=== PATIENT | female | born 1960 | race Caucasian/White ===

== ENCOUNTER 2019-11-18 12:01 | Outpatient (CLI) | payer BC, SELFPAY ==
--- NOTE | ~2019-11-18 | US_ITS ---
EXAMINATION: US pelvic complete w TV DATE: 11/18/2019 12:42 INDICATION: Postmenopausal bleeding TECHNIQUE: Multiple transabdominal and endovaginal sonographic images of the pelvis were obtained. COMPARISON: None. FINDINGS: The uterus measures 8.9 x 5.3 x 5.0 cm. The endometrial complex measures 7 mm. The ovaries are not visualized however no adnexal abnormality is seen. There is normal vascular flow in the ovari es. There is no free fluid in the pelvis. IMPRESSION: 1. Mild endometrial thickening which may be due to hyperplasia, polyp, or malignancy. Endometrial penelope pling is recommended. Reviewed, dictated and finalized at location A. IDE SALES ACCOUNT MANAGER IMPRESSION: 1. Mild endometrial thickening which may be due to hyperplasia, polyp, or malig nirali. Endometrial sampling is recommended.
== END 2019-11-18 12:02 | disposition home or self-care (01) ==
PROVIDERS: PCP Physician Assistant; Visit Provider Obstetrics & Gynecology Gynecology
DX: N95.0 Postmenopausal bleeding (principal)
CPT/HCPCS: 76830; 76856

== ENCOUNTER → 2020-07-23 15:20 | Outpatient (CLI) | payer BC, MEDICAID, SELFPAY ==
--- NOTE | ~2020-07-23 | XR_ITS ---
EXAMINATION: XR wrist RT min 3V DATE: 07/23/2020 15:55 INDICATION: Right wrist injury and swelling. TECHNIQUE: 4 views of right wrist were obtained. COMPARISON: None. FINDINGS: There is a transverse fracture of distal radial metaphysis without involvement of the dista l radioulnar joint or radiocarpal joint. The distal fracture fragment demonstrates impaction. There i s 9 degrees palmar tilt of the distal articular surface. Ulnar styloid is intact. There is mild osteo arthritis of first-third metacarpophalangeal joints. IMPRESSION: 1. Transverse fracture of distal radial metaphysis. Reviewed, dictated and finalized at location A. ETIC DENTIST
== END ==
PROVIDERS: PCP Physician Assistant; Visit Provider Family Medicine
DX: M79.89 Other specified soft tissue disorders (principal); S52.591A Other fractures of lower end of right radius, initial encounter for closed fracture; X58.XXXA Exposure to other specified factors, initial encounter
CPT/HCPCS: 73110

== ENCOUNTER 2020-07-24 10:52 | Emergency (ER) | payer BC, MEDICAID, SELFPAY ==
[2020-07-24 10:58] VITALS: BP 139/81; PULSE 84; RESP 24; TEMP 36.7; O2SAT 99
--- NOTE | 2020-07-24 11:19 | ED.GENADULT ---
HPI - General Adult General Chief complaint: Extremity Injury, Upper Stated complaint: INJURED R WRIST Source: patient Mode of arrival: ambulatory Limitations: no limitations History of Present Illness HPI narrative: 60 y/o female. PMH includes: See Chart. Presents to clinic today with acute complaints of RT wrist pain since Thursday (07/20/2020) after enduring a fall. Pt reports to have suffered mechanical fall, tripped at work , and caught herself with RT wrist. She denies additional injury or trauma. Client notes worsening RT wrist pain since incident. She has been wearing home RT wrist brace without relief. No loss of sensation or open wounds. Mild relief with IBU per report. She had contacted her PCP, whom kindly ordered OP imaging, and imaging reveals her wrist is fractured . Client notes she was told by her doctor to come to the clinic today for splinting. No additional acute c/o upon PE. Related Data Home Medications Medication Instructions Recorded Confirmed alprazolam 07/24/20 amlodipine 07/24/20 apremilast [Otezla] mg PO 07/24/20 atorvastatin 07/24/20 levothyroxine 07/24/20 lisinopril-hydrochlorothiazide tablet 07/24/20 Allergies Allergy/AdvReac Type Severity Reaction Status Date / Time diphenhydramine Allergy Intermediate Jittery Verified 12/30/18 07:32 Review of Systems Review of Systems: Narrative: CONSTITUTIONAL: Denies fever, chills, sweats. EYES: Denies visual changes, redness, discharge. ENT: Denies rhinorrhea, congestion, sore throat, otalgia. CARDIOVASCULAR: Denies chest pain, palpitations, edema. RESPIRATORY: Denies dyspnea, wheezing, cough GASTROINTESTINAL: Denies abdominal pain, nausea, vomiting, diarrhea. GENITOURINARY: Denies dysuria, hematuria, abnormal discharge SKIN: Denies rash or itching. MUSCULOSKELETAL: RT wrist joint pain. No myalgia. NEUROLOGIC: Denies numbness, or focal weakness. PSYCHIATRIC: Denies anxiety or depression. All systems reviewed & are unremarkable except as noted in HPI and below PMFSH Family History Family History Other Hypertension Social History Social History Smoking status: Never smoker Alcohol intake: current Exam Narrative: Exam Narrative: GENERAL: This is a well-nourished, well-developed patient, in no apparent distress. HEAD: normocephalic, atraumatic. EYES: PERRL. Sclera clear/white. Vision is grossly intact. EARS: External ears normal, auditory canals clear and without drainage, TMs normal without perforation. Hearing grossly intact. NOSE: External nose normal with no obvious nasal discharge, nares without redness, no rhinorrhea. THROAT: Mucous membranes moist, posterior pharynx clear. NECK: Neck supple, non-tender without lymphadenopathy, masses or thyromegaly. CARDIOVASCULAR: Regular rate and rhythm without murmurs, gallops, or rubs. Radial pulses RUE preserved. RESPIRATORY: Clear to auscultation. Breath sounds equal bilaterally. No wheezes, rales, or rhonchi. GASTROINTESTINAL: Abdomen soft, non-tender, nondistended. Bowel sounds are active. No hepato-splenomegaly, or palpable masses. No guarding. SKIN: warm, intact with no suspicious lesions or rash, good texture and turgor. NEURO: awake, alert, and oriented to person, place and time. There were no obvious focal neurologic abnormalities. Sensation RUE intact. EXTREMITIES: Limited ROM RT wrist secondary to pain. Mild soft tissue swelling and ecchymosis located above distal radial metaphysis. No gross edema or discoloration. No obvious deformity. No open areas. BACK: Nontender without deformity or crepitance. No flank tenderness. Jean Marie Coma Scale Eye Opening: Spontaneous 4 [place] Coma Scale Motor: Obeys Commands 6 [place] Coma Scale Verbal: Oriented 5 Const: General: no acute distress Orientation/consciousness: patient oriented x3 Course Course Emergency C
== END 2020-07-24 11:55 | disposition home or self-care (01) ==
PROVIDERS: Emergency Provider Nurse Practitioner Adult Health; PCP Physician Assistant
DX: S52.501A Unspecified fracture of the lower end of right radius, initial encounter for closed fracture (principal); W01.0XXA Fall on same level from slipping, tripping and stumbling without subsequent striking against object, initial encounter; Y99.0 Civilian activity done for income or pay
CPT/HCPCS: 29125; 99214; G0463

== ENCOUNTER 2020-07-31 15:29 | Outpatient (CLI) | payer BC, MEDICAID, SELFPAY ==
--- NOTE | ~2020-07-31 | MM_ITS ---
EXAMINATION: MM screening araceli BI w german HISTORY: Screening mammogram, history of left breast cancer TECHNIQUE: Craniocaudal and mediolateral oblique 3-D tomosynthesis images were obtained and synthetic 2-D images were generated. CAD analysis was submitted and interpreted. COMPARISON: 07/28/2019, 07/26/2018, 07/23/2017 BREAST PARENCHYMAL COMPOSITION: There are scattered areas of fibroglandular density. FINDINGS: Stable lumpectomy changes are present in the left breast. There is no evidence of suspiciou s mass, calcification, or architectural distortion to suggest malignancy in either breast. There has been no suspicious interval change. IMPRESSION: 1. No mammographic evidence of malignancy. 2. Recommend routine screening mammography in one year. BI-RADS Category 2: Benign finding(s). Reviewed, dictated and finalized at location A. AND VINE FRUIT CROP FARMER
== END 2020-07-31 15:30 | disposition home or self-care (01) ==
LOC: ANHIMG 15:31
PROVIDERS: PCP Family Medicine; Visit Provider Obstetrics & Gynecology Gynecology
DX: Z12.31 Encounter for screening mammogram for malignant neoplasm of breast (principal)
CPT/HCPCS: 77063; 77067

== ENCOUNTER 2021-05-15 15:27 | Emergency (ER) | payer OTHER, BC, MEDICAID, SELFPAY ==
[2021-05-15 15:56] VITALS: BP 100/67; PULSE 87; RESP 14; TEMP 36.4; O2SAT 99
--- NOTE | 2021-05-15 16:24 | ED.GENADULT ---
HPI - General Adult General Chief complaint: Unspecified Stated complaint: NEEDLESTICK Time Seen by Provider: 05/15/21 16:03 History of Present Illness HPI narrative: Patient presents with a needlestick. 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 She came to realize it was the diabetic lancet for one of the residents. Virtually sanitized the wound site did stop bleeding reported to her supervisor cell room and was referred to the ER for evaluation. Plan for she feels well she has no focal areas of pain at this time Related Data Home Medications Medication Instructions Recorded Confirmed alprazolam 07/24/20 07/25/20 amlodipine 07/24/20 07/25/20 apremilast [Otezla] mg PO 07/24/20 07/25/20 atorvastatin 07/24/20 07/25/20 levothyroxine 07/24/20 07/25/20 lisinopril-hydrochlorothiazide tablet 07/24/20 07/25/20 Allergies Allergy/AdvReac Type Severity Reaction Status Date / Time diphenhydramine Allergy Intermediate Jittery Verified 07/25/20 11:45 Review of Systems Review of Systems: CONSTITUTIONAL: Denies fever, chills, or sweats. EYES: Denies visual changes, redness, or discharge. ENT: Denies rhinorrhea, congestion, sore throat, or otalgia. CARDIOVASCULAR: Denies chest pain, palpitations, or edema. RESPIRATORY: Denies cough or dyspnea. GASTROINTESTINAL: Denies abdominal pain, nausea, vomiting, or diarrhea. GENITOURINARY: Denies dysuria or hematuria. SKIN: Denies rash or itching. MUSCULOSKELETAL: Denies back pain, joint pain, or myalgia. NEUROLOGIC: Denies headache, numbness, dizziness, or weakness. PSYCHIATRIC: Denies anxiety or depression. All systems reviewed & are unremarkable except as noted in HPI and below PMFSH Family History Family History Other Hypertension Social History Social History Smoking status: Never smoker Alcohol intake: current Exam Narrative: GENERAL: Well-appearing, well-nourished, and in no acute distress. HEAD: Normocephalic, atraumatic. EYES: PERRLA and EOMI. ENT: Nares clear, no rhinorrhea or epistaxis. Mucous membranes moist. NECK: Supple. No masses. No JVD EXTREMITIES: Normal range of motion. No edema. No active bleeding no erythema minimal tenderness on the distal aspect of the second digit on the left hand SKIN: Warm, dry, no rash. NEURO: No focal deficits. Alert and oriented x3. PSYCH: Normal mood and affect. Course Vital Signs Vital signs: Vital Signs Temperature 36.4 C 05/15/21 15:56 Pulse Rate 87 05/15/21 15:56 Respiratory Rate 14 05/15/21 15:56 Blood Pressure 100/67 05/15/21 15:56 Pulse Oximetry 99 05/15/21 15:56 Temperature 36.4 C 05/15/21 15:56 Pulse Rate 70 05/15/21 17:11 Respiratory Rate 14 05/15/21 17:11 Blood Pressure 100/67 05/15/21 15:56 Pulse Oximetry 99 05/15/21 15:56 Medical Decision Making MDM Narrative Medical decision making narrative: H&P as above, vss, pt looks clinically well, exam reassuring, labs pending, additional labs/img considered, symptomatic relief available as needed, patient was offered HIV PPX. Suspect accidental needle stick, dns cellulitis, fracture. plan to tx/monitor as op w/ pcm f/u findings/plan discussed with pt, pt agree/comfortable with plan, return precautions given Vital Signs Vital Signs: Vital Signs Temperature 36.4 C 05/15/21 15:56 Pulse Rate 87 05/15/21 15:56 Respiratory Rate 14 05/15/21 15:56 Blood Pressure 100/67 05/15/21 15:56 Pulse Oximetry 99 05/15/21 15:56 Temperature 36.4 C 05/15/21 15:56 Pulse Rate 70 05/15/21 17:11 Respiratory Rate 14 05/15/21 17:11 Blood Pressure 100/67 05/15/21 15:56 Pulse Oximetry 99 05/15/21 15:56 Lab Data Labs: Lab Results
[2021-05-15 17:11] VITALS: PULSE 70; RESP 14
[2021-05-15 18:37] LABS: HIV 1/2 Ab P24 Ag Result Negative (Negative); Hepatitis B Surface Anti Res Negative; Hepatitis C Virus Antibody Negative (Negative)
== END 2021-05-15 17:11 | disposition home or self-care (01) ==
PROVIDERS: Emergency Provider Emergency Medicine; PCP Family Medicine
DX: S61.231A Puncture wound without foreign body of left index finger without damage to nail, initial encounter (principal); W46.1XXA Contact with contaminated hypodermic needle, initial encounter
CPT/HCPCS: 36415; 86703; 86706; 86803; 99283; G0432

== ENCOUNTER 2021-10-03 07:32 | Outpatient (CLI) | payer BC, MEDICAID, SELFPAY ==
--- NOTE | ~2021-10-03 | MM_ITS ---
EXAMINATION: MM screening araceli BI w german HISTORY: Screening TECHNIQUE: Craniocaudal and mediolateral oblique 3-D tomosynthesis images were obtained and synthetic 2-D images were generated. CAD analysis was submitted and interpreted. COMPARISON: Comparison to multiple prior studies sequentially, with oldest reviewed study dated 07/22. BREAST PARENCHYMAL COMPOSITION: There are scattered areas of fibroglandular density. FINDINGS: There is no evidence of suspicious mass, calcification, or architectural distortion to sugg est malignancy in either breast. There has been no suspicious interval change. IMPRESSION: 1. No mammographic evidence of malignancy. 2. Recommend routine screening mammography in one year. BI-RADS Category 1: Negative Reviewed, dictated and finalized at location A. TLE MECHANIC
== END 2021-10-03 07:33 | disposition home or self-care (01) ==
LOC: ANHIMG 07:37
PROVIDERS: PCP Family Medicine; Visit Provider Obstetrics & Gynecology Gynecology
DX: Z12.31 Encounter for screening mammogram for malignant neoplasm of breast (principal)
CPT/HCPCS: 77063; 77067

== ENCOUNTER 2021-10-15 11:32 | Outpatient (CLI) | payer BC, MEDICAID, SELFPAY ==
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
--- NOTE | ~2021-10-15 | XR_ITS ---
XR nasal bones min 3V DATE: 10/15/2021 12:12 INDICATION: Disorder of nose and nasal sinuses TECHNIQUE: Reece and left and right lateral views of nasal bones COMPARISON: None FINDINGS: The nasal bones and anterior maxillary spine appear intact. Normal sella turcica. The paranasal sinuses and mastoid air cells appear normally developed and aerated. Rightward deviation of nasal septum and prominence of the nasal turbinates. IMPRESSION: No evidence of nasal bone fracture Reviewed, dictated and finalized at location A. IGERATION PERSON
== END 2021-10-15 11:33 | disposition home or self-care (01) ==
LOC: ANHIMG 11:38
PROVIDERS: PCP Family Medicine; Visit Provider Physician Assistant
DX: J34.89 Other specified disorders of nose and nasal sinuses (principal); M79.89 Other specified soft tissue disorders; M19.071 Primary osteoarthritis, right ankle and foot; M77.31 Calcaneal spur, right foot; M25.471 Effusion, right ankle; S82.491A Other fracture of shaft of right fibula, initial encounter for closed fracture; X58.XXXA Exposure to other specified factors, initial encounter
CPT/HCPCS: 70160; 73090; 73610; 73630

== ENCOUNTER → 2022-03-10 10:23 | Outpatient (CLI) | payer BC, MEDICAID, SELFPAY ==
--- NOTE | ~2022-03-10 | US_ITS ---
EXAMINATION: US renal BI DATE: 03/10/2022 10:39 INDICATION: Abnormal results of renal function studies TECHNIQUE: Multiple ultrasound grayscale images of the kidneys were obtained. COMPARISON: None. FINDINGS: The right kidney measures 9.9 x 5.2 x 5.7 cm. The left kidney measures 9.8 x 5.5 x 4.2 cm. The kidney s demonstrate normal echogenicity. There is no hydronephrosis in either kidney. No stones identified . The bladder is normal. IMPRESSION: 1. Normal kidneys without hydronephrosis. Reviewed, dictated and finalized at location B.
== END ==
PROVIDERS: PCP Family Medicine; Visit Provider Internal Medicine Nephrology
DX: R94.4 Abnormal results of kidney function studies (principal)
CPT/HCPCS: 76775

== ENCOUNTER → 2022-04-11 09:40 | Outpatient (CLI) | payer BC, MEDICAID, SELFPAY ==
--- NOTE | ~2022-04-11 | CT_ITS ---
EXAMINATION: CT BRAIN W/O DATE: 04/11/2022 10:04 INDICATION: Tremors. Dizziness. Vertigo. TECHNIQUE: Computed tomography (CT) of the head was performed without intravenous contrast. The dose- length product was 599.57 mGy-cm. Automated exposure control and iterative reconstruction technique w ere employed. COMPARISON: No prior studies for comparison. FINDINGS: Normal brain parenchymal volume for age. Normal wilkerson-white differentiation. No acute intrac ranial hemorrhage, infarction, mass or mass effect. No ventriculomegaly or midline shift. Midline sagittal images demonstrate a normal corpus callosum, c raniovertebral junction and sella turcica. Basilar cisterns are patent. Paranasal sinuses and mastoids are pneumatized. No depressed skull fractures. IMPRESSION: 1. No acute intracranial abnormality. Reviewed, dictated and finalized at location A.
== END ==
PROVIDERS: PCP Family Medicine; Visit Provider Physician Assistant
DX: R42 Dizziness and giddiness (principal); R25.1 Tremor, unspecified
CPT/HCPCS: 70450

== ENCOUNTER 2022-11-21 09:56 | Outpatient (CLI) | payer MEDICARE, MEDICAID, SELFPAY ==
--- NOTE | ~2022-11-21 | MM_ITS ---
EXAMINATION: MM screening araceli BI w german HISTORY: Screening TECHNIQUE: Craniocaudal and mediolateral oblique 3-D tomosynthesis images were obtained and synthetic 2-D images were generated. CAD analysis was submitted and interpreted. COMPARISON: Comparison to multiple prior studies sequentially, with oldest reviewed study dated 06/23. BREAST PARENCHYMAL COMPOSITION: There are scattered areas of fibroglandular density. FINDINGS: There is no evidence of suspicious mass, calcification, or architectural distortion to sugg est malignancy in either breast. There has been no suspicious interval change. IMPRESSION: 1. No mammographic evidence of malignancy. 2. Recommend routine screening mammography in one year. BI-RADS Category 1: Negative Reviewed, dictated and finalized at location B. AND TUBE STRAIGHTENER
--- NOTE | ~2022-11-21 | DEXA_ITS ---
Bone Density Report Name: MOIZ ZUÑIGA Age: 62 Sex: Female Ethnicity: White Date of : 1960 Indication: postmenopausal; screening for osteoporosis; parental hip fracture; height loss; prior fracture; cancer; Referring Provider: CAROLYNE SANCHEZ Study: Bone densitometry was performed. Exam Date: November 21, 2022 Accession number: [id number] Bone Density: Region BMD T-score Z-score Classification AP Spine(L1-L4) 1.122 0.7 2.3 Normal Femoral Neck (Left) 0.642 -1.9 -0.5 Osteopenia Total Hip (Left) 0.946 0.0 1.1 Normal Femoral Neck (Right) 0.646 -1.8 -0.4 Osteopenia Total Hip (Right) 0.897 -0.4 0.7 Normal Total Hip Mean 0.921 -0.2 0.9 Normal World Health Organization criteria for BMD impression classify patients as: Normal (T-score at or above -1.0), Osteopenia (T-score between -1.0 and -2.5), or Osteoporosis (T-score at or below -2.5). 10-year Fracture Risk(1): Major Osteoporotic Fracture 26% Hip Fracture 1.6% Reported Risk Factors: [place] (), Neck BMD=0.642, BMI=45.7, previous fracture, parental fracture (1) FRAX(R) Version 3.08. Fracture probability calculated for an untreated patient. Fracture probability may be lower if the patient has received treatment. Previous Exams: Region Exam Age BMD T-score BMD Change BMD Change Date g/cm2 vs Baseline vs Previous AP Spine (L1-L4) 11/21/2022 62 1.122 0.7 -0.026 (-2.3%) -0.026 (-2.3%) 07/26/2018 58 1.149 0.9 Total Hip(Left) 11/21/2022 62 0.946 0.0 -0.155 (-14.1% -0.155 (-14.1% 07/26/2018 58 1.101 1.3 Total Hip(Right) 11/21/2022 62 0.897 -0.4 -0.156 (-14.8% -0.156 (-14.8% 07/26/2018 58 1.053 0.9 *Denotes significance at 95% confidence level, LSC for AP Spine = 0.022 g/cm2, LSC for Total Hip = 0.027 g/cm2 Clinical Information Provided by Patient: Has had a low trauma fracture Parent has had a hip fracture Has the following medical conditions: Cancer Patient maximum height was 65 Menopause Age: 46 Drinks caffeinated beverages Onset of menses at age 11 Number of children 2 Impression: The patient has low bone mass, based on the Left Femoral Neck T-score. The patient has an estimated ten-year risk of hip fracture of 1.6% and an estimated ten-year risk of major fracture of 26%, based on the WHO FRAX algorithm. The patient has risk factors, including: parental hip fracture, previous fracture. The BMD for the AP Spine (L1-L4) dec
== END 2022-11-21 09:57 | disposition home or self-care (01) ==
LOC: ANHIMG 09:59
PROVIDERS: PCP Family Medicine; Visit Provider Obstetrics & Gynecology Gynecology
DX: Z12.31 Encounter for screening mammogram for malignant neoplasm of breast (principal); Z78.0 Asymptomatic menopausal state; M85.852 Other specified disorders of bone density and structure, left thigh; M85.851 Other specified disorders of bone density and structure, right thigh
CPT/HCPCS: 77063; 77067; 77080

== ENCOUNTER 2024-01-06 13:44 | Outpatient (CLI) | payer MEDICARE, SELFPAY ==
--- NOTE | ~2024-01-06 | MM_ITS ---
EXAMINATION: MM screening araceli BI w german HISTORY: Screening TECHNIQUE: Craniocaudal and mediolateral oblique 3-D tomosynthesis images were obtained and synthetic 2-D images were generated. CAD analysis was submitted and interpreted. COMPARISON: Comparison to multiple prior studies sequentially, with oldest reviewed study dated 07/22. BREAST PARENCHYMAL COMPOSITION: Not dense: There are scattered areas of fibroglandular density. FINDINGS: There is no evidence of suspicious mass, calcification, or architectural distortion to sugg est malignancy in either breast. There has been no suspicious interval change. IMPRESSION: 1. No mammographic evidence of malignancy. 2. Recommend routine screening mammography in one year. BI-RADS Category 1: Negative Reviewed, dictated and finalized at location B.
== END 2024-01-06 13:45 | disposition home or self-care (01) ==
LOC: ANHIMG 13:49
PROVIDERS: PCP Family Medicine; Visit Provider Obstetrics & Gynecology Gynecology
DX: Z12.31 Encounter for screening mammogram for malignant neoplasm of breast (principal)
CPT/HCPCS: 77063; 77067

== ENCOUNTER 2024-01-19 00:13 | Day surgery (SDC) | payer MEDICARE, SELFPAY ==
[2024-01-07 14:47] VITALS: BMI 42.9
[2024-01-19 08:18] VITALS: BP 137/95; PULSE 80; RESP 18; TEMP 35.4; O2SAT 97; BMI 41.7
[2024-01-19] MEDS: LACTATED RINGERS 1,000 ML 150 ML IV CONT (08:36)
--- NOTE | 2024-01-19 09:22 | WPDANESEPPF ---
Anes - Initial Pre Proc Eval Procedure: Operation Date: 01/19/24 09:30 Proposed Procedures p Screening Colonoscopy - Aditya Kang DO Date/Time: 01/19/24 09:22 Surgeon: Aditya Kang DO Pre Op Diagnosis: Screening for malignant neoplasm of colon Patient Data Age: 63 Gender: F Height: 1.65 m Weight: 113.8 kg Last Vital Signs Temp 95.7 F L 01/19/24 08:18 Pulse 80 01/19/24 08:18 Resp 18 01/19/24 08:18 BP 137/95 H 01/19/24 08:18 Pulse Ox 97 01/19/24 08:18 O2 Del Method Room Air 01/19/24 08:18 Allergies Allergy/AdvReac Type Severity Reaction Status Date / Time diphenhydramine Allergy Intermediate Jittery Verified 01/19/24 08:24 Home Medications Medication Instructions Recorded Confirmed Type meclizine 25 mg tablet 25 mg PO TID PRN Dizziness Or 11/17/22 01/19/24 History Vertigo amlodipine 10 mg tablet 10 mg PO DAILY 05/27/23 01/19/24 History atorvastatin 20 mg tablet 20 mg PO DAILY 05/27/23 01/19/24 History cholecalciferol (vitamin D3) 125 125 mcg PO DAILY 05/27/23 01/19/24 History mcg (5,000 unit) capsule levothyroxine 50 mcg tablet See Rx Instructions .Route 11/24/23 01/19/24 Rx .COMPLEX #90 tabs escitalopram oxalate 20 mg tablet 20 mg PO DAILY #90 tabs 12/11/23 01/19/24 Rx clobetasol 0.05 % topical ointment 1 applic topical DAILY PRN Rash 01/07/24 01/19/24 History progesterone micronized 200 mg 200 mg PO [id number] 01/07/24 01/19/24 History capsule risankizumab-rzaa 150 mg/mL 150 mg subcut [id number] 01/07/24 01/19/24 History subcutaneous pen injector (Skyrizi) Patient hx anesthesia problems: none Family hx anesthesia problems: none Results Review: All pre-operative results and documents have been reviewed as part of the pre-operative evaluation. [facility] Past Medical History Medical History Allergic rhinitis Anxiety Arthritis Breast cancer, left Chronic kidney disease, stage 3a Depression Hyperlipidemia Hypertension Hypothyroidism Kidney disease Psoriasis Vitamin D deficiency Surgical History Surgical History H/O arthroscopic knee surgery Left knee by [facility]B 12/28/2012 H/O tubal ligation 1988 History of section History of lumpectomy of left breast 02/2006 Family History Family History Other Hypertension Social History Social History (Updated 12/04/23 @ 10:02 by Stefanie Arceo MA) Smoking status: Never smoker Alcohol intake: current Substance use: never Substance use type: does not use Do You Feel Safe in your Home?: Yes Lack of Transportation: No Lack of Food: Never True Current Housing: I Have Housing Concerned About Future Housing: No Difficulty Paying Gas/Electric Bills: No Difficulty Paying for Meds: No Currently Unemployed: No Education: High School Diploma/GED Living arrangements: with family Occupation/Education: occupation Additional occupation/education comments: House Keeper at [employer] Gender identity (if verbalized by the patient): Female Sexual Orientation (if Verbalized by the Patient): Straight or Heterosexual Spiritual care concerns: No Anes - Eval Final PreProcedure Day of Procedure 01/19/24 09:22 Patient weight: morbidly obese Heart: regular rate and rhythm Lungs: clear to auscultation Airway: Mallampati scale class II Neurological: alert and oriented Last oral intake: >/= 8 hours ASA classification: III Emergent: no Anesthetic plan: proceed Anesthesia type and monitoring: general GIVS and standard monitoring Results Review: All pre-operative results and documents have been reviewed as part of the pre-operative evaluation. Informed Consent: The patient's anesthetic plan and its attendant risks and benefits were discussed with the patient/family/POA. Questions were bladimir
--- NOTE | 2024-01-19 10:00 | PM.IMHP ---
H&P: HPI History of Present Illness Date/Time: 01/19/24 10:00 Chief Complaint: Family history colon cancer Narrative: This is a 63-year-old woman who presents for colonoscopy. Her last colonoscopy was 5 years ago and a polyp was removed. She has a family history of colon cancer in her father who was diagnosed around 75. She denies any hematochezia or melena. Review of Systems Review of Systems: All systems reviewed & are unremarkable except as noted in HPI and below Constitutional: Constitutional: Denies chills, Denies fever(s), Denies headache(s) and Denies weight loss Eyes: Eyes: Denies change in vision ENT: Denies dizziness, Denies headache(s), Denies neck mass and Denies throat swelling Cardiovascular: Cardiovascular: Denies chest pain, Denies lightheadedness and Denies dyspnea Respiratory: Respiratory: Denies cough, Denies dyspnea and Denies wheezing Gastrointestinal: Gastrointestinal: Denies abdominal pain, Denies change in bowel habits, Denies nausea and Denies vomiting Genitourinary: Genitourinary: Denies hematuria and Denies dysuria Musculoskeletal: Musculoskeletal: Reports as per HPI Integumentary/Breasts: Skin/Breast: Reports as per HPI Neurologic: Denies dizziness and Denies headache(s) Allergic/Immunologic: Allergic/Immunologic: Denies throat swelling and Denies wheezing PMFSH Past Medical History Medical History Allergic rhinitis Anxiety Arthritis Breast cancer, left Chronic kidney disease, stage 3a Depression Hyperlipidemia Hypertension Hypothyroidism Kidney disease Psoriasis Vitamin D deficiency Surgical History Surgical History H/O arthroscopic knee surgery Left knee by PSB 12/28/2012 H/O tubal ligation 1988 History of section History of lumpectomy of left breast 02/2006 Family History Family History Other Hypertension Social History Social History (Updated 12/04/23 @ 10:02 by Stefanie Arceo MA) Smoking status: Never smoker Alcohol intake: current Substance use: never Substance use type: does not use Do You Feel Safe in your Home?: Yes Lack of Transportation: No Lack of Food: Never True Current Housing: I Have Housing Concerned About Future Housing: No Difficulty Paying Gas/Electric Bills: No Difficulty Paying for Meds: No Currently Unemployed: No Education: High School Diploma/GED Living arrangements: with family Occupation/Education: occupation Additional occupation/education comments: House Keeper at [employer] Gender identity (if verbalized by the patient): Female Sexual Orientation (if Verbalized by the Patient): Straight or Heterosexual Spiritual care concerns: No Meds Home Medications and Allergies Home Medications Medication Instructions Recorded Confirmed Type meclizine 25 mg tablet 25 mg PO TID PRN Dizziness Or 11/17/22 01/19/24 History Vertigo amlodipine 10 mg tablet 10 mg PO DAILY 05/27/23 01/19/24 History atorvastatin 20 mg tablet 20 mg PO DAILY 05/27/23 01/19/24 History cholecalciferol (vitamin D3) 125 125 mcg PO DAILY 05/27/23 01/19/24 History mcg (5,000 unit) capsule levothyroxine 50 mcg tablet See Rx Instructions .Route 11/24/23 01/19/24 Rx .COMPLEX #90 tabs escitalopram oxalate 20 mg tablet 20 mg PO DAILY #90 tabs 12/11/23 01/19/24 Rx clobetasol 0.05 % topical ointment 1 applic topical DAILY PRN Rash 01/07/24 01/19/24 History progesterone micronized 200 mg 200 mg PO [id number] 01/07/24 01/19/24 History capsule risankizumab-rzaa 150 mg/mL 150 mg subcut [id number] 01/07/24 01/19/24 History subcutaneous pen injector (Skyrizi) Allergies Allergy/AdvReac Type Severity Reaction Status Date / Time diphenhydramine Allergy Intermediate Jittery Verified 01/19/24 08:24 Vital Signs Vital Signs - 24 hr
[2024-01-19 10:27] VITALS: BP 82/43; PULSE 64; RESP 16; O2SAT 92
[2024-01-19 10:37] VITALS: BP 80/42; PULSE 60; RESP 20; O2SAT 93
[2024-01-19 10:47] VITALS: BP 103/55; PULSE 65; RESP 24; O2SAT 97
== END 2024-01-19 10:58 | disposition home or self-care (01) ==
PROVIDERS: PCP Physician Assistant; Visit Provider Surgery
PROC: 0DJD8ZZ Inspection of Lower Intestinal Tract, Via Natural or Artificial Opening Endoscopic (ICD-10-PCS; CPT 45378; principal; 2024-01-19 09:30)
DX: Z12.11 Encounter for screening for malignant neoplasm of colon (principal); Z80.0 Family history of malignant neoplasm of digestive organs; I12.9 Hypertensive chronic kidney disease with stage 1 through stage 4 chronic kidney disease, or unspecified chronic kidney disease; N18.31 Chronic kidney disease, stage 3a; E78.5 Hyperlipidemia, unspecified; E03.9 Hypothyroidism, unspecified; E55.9 Vitamin D deficiency, unspecified; L40.9 Psoriasis, unspecified; F41.9 Anxiety disorder, unspecified; Z85.3 Personal history of malignant neoplasm of breast; E66.01 Morbid (severe) obesity due to excess calories; Z68.41 Body mass index [BMI] 40.0-44.9, adult; Z79.620 Long term (current) use of immunosuppressive biologic
CPT/HCPCS: G0105; J2001; J2704; J7120

== ENCOUNTER 2025-01-11 15:07 | Outpatient (CLI) | payer MEDICARE, MEDICAID, SELFPAY ==
--- NOTE | ~2025-01-11 | MM_ITS ---
EXAMINATION: MM screening araceli BI w german HISTORY: Screening TECHNIQUE: Craniocaudal and mediolateral oblique 3-D tomosynthesis images were obtained and synthetic 2-D images were generated. CAD analysis was submitted and interpreted. COMPARISON: Comparison to multiple prior studies sequentially, with oldest reviewed study dated 01/2018. BREAST PARENCHYMAL COMPOSITION: Not dense: There are scattered areas of fibroglandular density. FINDINGS: There is no evidence of suspicious mass, calcification, or architectural distortion to sugg est malignancy in either breast. There has been no suspicious interval change. IMPRESSION: 1. No mammographic evidence of malignancy. 2. Recommend routine screening mammography in one year. BI-RADS Category 1: Negative Reviewed, dictated and finalized at location A.
--- OUTSIDE RECORDS SUMMARY | 2025-01-11 17:08 | XMS_ITS | Clinical Summary ---
Author Organization [facility] Address [address] [address] Phone Care Team Providers Care Trackman Name Role Phone Elvin Nguyen MD Primary Care Provider [phone] Medications hydrocortisone (ANUSOL-HC) 2.5 % Cream Apply daily. Apply to rectum as directed. 1 Tube 08/17/2019 Active Social History Tobacco Use Types Packs/Day Years Used Date Smoking Tobacco: Never Assessed Comments Unknown Sex and Gender Information Value Date Recorded Sex Assigned at Not on file Legal Sex Female 11:18 PM CDT Gender Identity Not on file Sexual Orientation Not on file Plan of Treatment Health Maintenance Due Date Last Done Comments Hepatitis C Virus (HCV) Screening 1960 TdaP Immunization 1960 Pap Smear 01/30/1981 Cervical Cancer Screening (CCS) 01/30/1990 HPV/Cotest 01/30/1990 Cologuard 01/30/2010 Immunochemical Fecal Occult Blood 01/30/2010 Mammogram 01/30/2010 Pneumococcal Immunization (5 0+ years) (1 of 1 - PCV) 01/30/2010 Zoster Immunization (1 of 2) 01/30/2010 Colonoscopy 12/31/2023 12/30/2018 Colorectal Cancer Screening 12/31/2023 Influenza Immunization (#1) 2024 SARS-COV-2 Immunization ( - 2023-25 season) 2024 Respiratory Syncytial Virus (RSV) Immunization (Adult) (1 - 1-dose 75+ series) 01/30/2035 12/30/2018 Hepatitis B Immunization Aged Out No longer eligible based on patient's age to complete this topic Meningococcal Immunization (ACWY) Aged Out No longer eligible based on patient's age to complete this topic Pneumococcal Immunization Combined Aged Out No longer eligible based on patient's age to complete this topic Rotavirus Immunization Aged Out No lo nger eligible based on patient's age to complete this topic Procedures Procedure Name Priority Date/Time Associated Diagnosis Comments COLONOSCOPY Routine 12/30/2018 from Last 3 Months or Most Recently Relevant to Health Maintenance Results * HM COLONOSCOPY (12/30/2018) Lyle Pike DO PROCEDURE/MINOR SURGICAL ORDERA BLES Final Result from Last 3 Months or Most Recently Relevant to Health Maintenance Insurance Care Teams Trackman Relationship Specialty Start Date End Date Elvin Nguyen MD [address] [place] [id number] PCP - General Family Medicine 01/03/19
--- OUTSIDE RECORDS SUMMARY | 2025-01-11 17:08 | XMS_ITS | Clinical Summary ---
Author Organization [facility] Address [address] [place] [id number] Phone Care Team Providers Care Director Speech Language Name Role Phone Elvin Nguyen MD Primary Care Provider [phone] Allergies Active Allergy Reactions Criticality Noted Date Comments Diphenhydramine 01/16/2022 Restless legs Medications amLODIPine (NORVASC) 10 MG tablet Take 10 mg by mouth 1 (one) time each day 12/04/2021 Active lisinopril (PRINIVIL) 10 MG tablet Take 10 mg by mouth 1 (one) time each day 12/13/2021 Active Otezla 30 MG tablet 12/06/2021 Active atorvastatin (LIPITOR) 20 MG tablet Take 20 mg by mouth 1 (one) time each day 01/02/2022 Active clobetasol (TEMOVATE) 0.05 % ointment APPLY TO ARMS EVERY DAY NEEDED 10/27/2021 Active estradiol (VAGIFEM) 10 MCG tablet vaginal tablet 01/15/2022 Acti ve levothyroxine (SYNTHROID) 50 MCG tablet TAKE 1 TABLET BY MOUTH EVERY DAY IN THE MORNING ON AN EMPTY STOMACH 11/13/2021 Active oxybutynin (DITROPAN) 5 MG tablet Take 5 mg by mouth 2 (two) times a day 11/21/2021 Active PARoxetine (PAXIL) 40 MG tablet Take 40 mg by mouth 1 (one) time each day 12/04/2021 Active HYDROcodone-tawanda taminophen (NORCO) 5-325 MG per tablet TAKE 1 TABLET BY MOUTH EVERY 4 HOURS FOR 7 DAYS NEEDED 04/09/2022 Active meclizine (ANTIVERT) 25 MG tablet Take 25 mg by mouth 3 (three) times a day if needed 04/07/2022 Active Progesterone 200 MG capsule 02/12/2022 Acti ve valACYclovir (VALTREX) 1 g tablet prn 03/26/2022 Active Active Problems Problem Noted Date Diagnosed Date Essential hypertension 01/16/2022 Nonspecific abnormal results of function study o f kidney 01/16/2022 Other and unspecified hyperlipidemia 01/16/2022 Family History Medical History Relation Comments Kidney disease Neg Hx Social History Tobacco Use Types Packs/Day Years Used Date Smoking Tobacco: Never Smokeless Tobacco: Never Alcohol Use Standard Drinks/Week Comments Yes 0 (1 standard drink = 0.6 oz pur e alcohol) rare Comments Unknown Sex and Gender Information Value Date Recorded Sex Assigned at Not on file Legal Sex Female 9:21 AM MDT Gender Identity Not on file Sexual Orientation Not on file Last Filed Vital Signs Vital Sign Reading Time Taken Comments Blood Pressure 122/70 05/08/2022 9:55 AM CDT Pulse 72 05/08/2022 9:55 AM CDT Temperature 36.2 C (97.2 F) 05/08/2022 9:55 AM CDT Respiratory Rate - - Oxygen Saturation - - Inhaled Oxygen Concentration - - Weight 105 kg (232 lb) 05/08/2022 9:55 AM CDT Height 162.6 cm (5' 4 ) 05/08/2022 9:55 AM CDT Body Mass Index 39.82 05/08/2022 9:55 AM CDT Plan of Treatment Health Maintenance Due Date Last Done Comments Influenza Vaccine (Season Ended) 2025 Insurance MEDICAID - [place] Care Teams Director Speech Language Relationship Specialty Start Date End Date Elvin Nguyen MD [address] [place] [address] PCP - General Internal Medicine 12/23/21
--- OUTSIDE RECORDS SUMMARY | 2025-01-11 17:08 | XMS_ITS | Clinical Summary ---
Author Organization [facility] Address [address] [place] [address] Care Team Providers Care J2Ee Android Developer Name Role Phone Berta Flores MD Primary Care Provider Source Comments [facility],non-owned Affiliates and Associated Physician Practices is amultiple site organization consisting of ambulatory clinics and hospital sitesin [place] and [place]. This disclosure is being madepursuant to the Care Everywhere program and may not contain all information available regarding this patient. Last updated 18.[facility] Social History Tobacco Use Types Packs/Day Years Used Date Smoking Tobacco: Never Assessed Comments Unknown Sex and Gender Information Value Date Recorded Sex Assigned at Not on file Legal Sex Female 6:02 PM FLOORMAN Gender Identity Not on file Sexual Orientation Not on file Plan of Treatment Health Maintenance Due Date Last Done Comments COLOGUARD (AGES 45-75) - COL ON CA SCREENING 1960 COLON MONITORING 1960 COLONOSCOPY - COLON CA SCREENING 1960 CT COLONOGRAPHY - COLON CA SCREENING 1960 Colorectal Cancer Screening 1960 FIT - COLON CA SCREENING 1960 FLEX SIG - COLON CA SCREENING 1960 LIPID TESTING 1960 MAMMOGRAM 1960 HIV SCREENING 01/30/1975 HEPATITIS C SCREENING 01/26/1978 DTAP/TDAP/TD VACCINES (1 - Tdap) 01/30/1979 PNEUMOCOCCAL VACCINE 50+ (1 of 1 - PCV) 01/30/2010 ZOSTER VACCINE (1 of 2) 01/30/2010 COVID-19 VACCINE ( - 2023-2 5 season) 2024 DEPRESSION SCREENING 09/21/2024 INFLUENZA VACCINE (Season Ended) 2025 Respiratory Syncytial Virus (RSV) Vaccine Pt: or over 60 yrs (1 - 1-dose 75+ series) 01/30/2035 HEPATITIS B VACCINE Aged Out No longe r eligible based on patient's age to complete this topic HIB VACCINE Aged Out No longer eligi ble based on patient's age to complete this topic HPV VACCINE Aged Out No longer eligi ble based on patient's age to complete this topic MENINGOCOCCAL (Group B) VACC INE SHARED DECISION-MAKING Aged Out No longer eligibl e based on patient's age to complete this topic MENINGOCOCCAL GROUPS A/C/Y/W VACCINE Aged Out No longer eligible b ased on patient's age to complete this topic Insurance [facility] MEDICAID - OUT OF STATE Care Teams J2Ee Android Developer Relationship Specialty Start Date End Date Berta Flores MD [address] [place] [id number] PCP - General 02/09/19
--- OUTSIDE RECORDS SUMMARY | 2025-01-11 17:08 | XMS_ITS | Continuity of Care Document ---
Author Organization [facility] Address [address] [place] [address] [place] [address] Phone Care Team Providers Care Jewelry Technician Name Role Phone Duke Marquis MD Unavailable Unavailable Procedures Procedure Date Eye Exam & Treatment Advance Directives Directive Yes / No Effective Date File Name No Information Encounters Encounter Description Practice Location Reason(s) For Visit Diagnoses Date Provider Providers Copied on Encounter [facility], [address], [place], [place], [id number], [place] tel:[phone] [place] Professional No Information [address] [facility] [address], [place], [place], [id number], [place]. tel:[phone] Family History Family Member Type Diagnosis Age At Onset No Information Payers Payer name Insurance type Covered constitution party ID Authoriza tion(s) No Information Social History Type Description Quantity Date Captured Comments Sex Female Smoking Status No Information Chief Complaint And Reason For Visit No Information Reason For Referral Reason For Referral No Information History Of Present Illness Encounter Date Complaint History Of Prese nt Illness No Information Functional Status Date Functional Assessmen t No Information Instructions Date Instruction Additional Infor mation No Information Assessments Type Assessment Date No Information Patient Care Teams Name Effective Dates (start - stop) Status Members No Information
--- OUTSIDE RECORDS SUMMARY | 2025-01-11 17:08 | XMS_ITS | Encounter Summary ---
Author Organization [facility] Address [address] [place] [address] Care Team Providers Care Home Coordinator Name Role Phone Berta Flores MD Primary Care Provider Encounter Details Date Type Department Care Team (Late st Contact Info) Description 05/21/2020 Lab Requisition [facility] [address] [facility] [place] [address] Sultana Ochoa MD [address] [facility] [address] [place] [address] Social History Tobacco Use Types Packs/Day Years Used Date Smoking Tobacco: Never Assessed Comments Unknown Sex and Gender Information Value Date Recorded Sex Assigned at Not on file Legal Sex Female 6: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 CALLER Gender Identity Not on file Sexual Orientation Not on file documented as of this encounter Plan of Treatment Not on file documented as of this encounter Procedures Procedure Name Priority Date/Time Associated Diagnosis Comments DERMATOPATHOLOGY Routine 05/17/2020 12:0 0 AM CDT documented in this encounter Results * DERMATOPATHOLOGY (05/17/2020 12:00 AM CDT) Case Report Dermatopathology Report Case: [id number] Authorizing Provider: Sultana Ochoa MD Collected: 05/17/2020 12:00 AM Ordering Location: [facility] Lab Received: 05/21/2020 01:06 PM Pathologist: Pearl Fernandez MD Specimen: Skin, forehead 0 1:10 PM CDT DERMATOPATHOLOGY LABORATORY Final Diagnosis Specimen A. SKIN, forehead: INTRADERMAL NEVUS, NEUROTIZED (D22.9) 0 1:10 PM CDT DERMATOPATHOLOGY LABORATORY Clinical History R/O BCC, nevus. [place] papule. 0 1:10 PM CDT DERMATOPATHOLOGY LABORATORY Gross Description Specimen A: Received is one formalin filled container labeled with the patient's name and designated forehead. The specimen consists of a shave measuring [id number]. Jar 0. 0 1:10 PM CDT DERMATOPATHOLOGY LABORATORY Microscopic Description Specimen A. SKIN, forehead: Sections show nests, cords, and strands of cytologically bland melanocytes that mature with descent into the dermis. There are areas in which the melanocytes have a neuroid appearance. 0 1:10 PM CDT DERMATOPATHOLOGY LABORATORY Disclaimer An external and internal positive and negative controls are appropriate for the histochemical, immunohistochemical and immunofluorescence stain(s) in this case (if any), except where stated explicitly. The performance characteristics of the stain(s) cited in this report were developed and its performance characteristic determined by the Dermatopathology Laboratory at [facility], directed by Dr. Karel Fernandez. These tests need not be, and therefore are not, approved by the [place] Food and Drug Administration. The tests are used for clinical purposes. Billing Codes Specimen Charges Stain Charges 15789 1 0 1:10 PM CDT DERMATOPATHOLOGY LABORATORY Embedded Images 0 1:10 PM CDT DERMATOPATHOLOGY LABORATORY Pathology/Cytolog y TISSUE SPECIMEN FROM SKIN / Unknown 05/17/2020 05/21/2020 1:06 PM CDT us Sultana Ochoa MD LAB - PATHOLOGY/CYTOLOGY ORD ERABLES Final Result DERMATOPATHOLOGY LABORATORY [facility] - Department of Dermatology [address] [place] [address], [facility] [phone] documented in this encounter Visit Diagnoses Not on filedocumented in this encounter Care Teams Home Coordinator Relationship Specialty Start Date End Date Berta Flores MD [address] [place] [id number] PCP - General 02/09/19 documented as of this encounter
== END 2025-01-11 15:08 | disposition home or self-care (01) ==
LOC: ANHIMG 15:08
PROVIDERS: PCP Family Medicine; Visit Provider Obstetrics & Gynecology Gynecology
DX: Z12.31 Encounter for screening mammogram for malignant neoplasm of breast (principal)
CPT/HCPCS: 77063; 77067